=== PATIENT | female | born 1970 | race Caucasian/White ===

== ENCOUNTER 2017-02-25 10:05 | Emergency (ER) | payer MEDICAID ==
[2017-02-25 10:06] VITALS: BMI 21.1
[2017-02-25 10:27] VITALS: RESP 16; TEMP 98
[2017-02-25] MEDS ORDERED: Sodium Chloride 0.9% 1,000 ML IV STA (10:37)
--- NOTE | 2017-02-25 10:37 | ED PDOC ---
Arrival/HPI - General Chief Complaint: Headache Time Seen by Provider: 02/25/17 10:15 Historian: Patient - History of Present Illness Narrative History of Present Illness (Text): 02/25/17 10:25 Nasima Conklin is a 46 year old female, whose past medical history includes vertigo and hysterectomy, who presents to the emergency department complaining of dizziness, nausea, and vomiting since 3 days ago. Patient reports symptoms are similar, but worse compared to her previous vertigo episodes due to the duration. Patient denies abdominal pain, chest pain, shortness of breath, visual changes or other complaints. Time/Duration: < week (3 days ) Symptom Onset: Sudden Symptom Course: Unchanged Activities at Onset: Light Context: Standing Associated Symptoms (Text): 02/25/17 nausea, vomiting, dizziness, headache Past Medical History - Provider Review Nursing Documentation Reviewed: Yes - Infectious Disease Hx of Infectious Diseases: None - Tetanus Immunization Tetanus Immunization: Unknown - Past Medical History Past Medical History: No Previous - Neurological Hx Headaches: Yes - Hematological/Oncological Hx Anemia: Yes Hx Blood Transfusions: Yes Hx Blood Transfusion Reaction: No - Musculoskeletal/Rheumatological Hx Falls: No - Gastrointestinal Hx Gastritis: Yes - Genitourinary/Gynecological Other/Comment: FIBROMA - REASON for hysterectomy - Psychiatric Hx Depression: No Hx Emotional Abuse: No Hx Physical Abuse: No Hx Substance Use: No - Surgical History Hx Hysterectomy: Yes - Anesthesia Hx Anesthesia: Yes Hx Anesthesia Reactions: No - Suicidal Assessment Feels Threatened In Home Enviroment: No Family/Social History - Physician Review Nursing Documentation Reviewed: Yes Family/Social History: No Known Family HX Smoking Status: Never Smoked Hx Alcohol Use: No Hx Substance Use: No Hx Substance Use Treatment: No Allergies/Home Meds Allergies/Adverse Reactions: Allergies codeine Allergy (Severe, Verified 02/25/17 10:28) ANAPHYLAXIS Home Medications: Home Meds Medication Instructions Recorded Confirmed Ibuprofen [Motrin Ib] 0 mg PO PRN PRN 02/25/17 02/25/17 Topiramate [Topamax] 50 mg PO DAILY 02/25/17 02/25/17 Review of Systems - Physician Review All systems were reviewed & negative as marked: Yes - Review of Systems Eyes: absent: Vision Changes Respiratory: absent: SOB Gastrointestinal: Nausea, Vomiting Neurological: Headache, Dizziness Physical Exam - Physical Exam Narrative Physical Exam (Text): Constitutional: No acute distress. Head: Normocephalic. Atraumatic. Eyes: PERRL. ENT: Moist mucous membranes. Neck: Supple. Cardiovascular: Regular rate. Chest: No tenderness. Respiratory: Clear to auscultation bilaterally. GI: Soft. Nontender. Nondistended. Back: No CVA tenderness. Musculoskeletal: No tenderness or swelling of extremities. Skin: No rash. Neurologic: Alert, no focal deficit. FTN, HTS normal. Motor strength 5/5 x 4. ( +) trino hallpike test. Vital Signs Reviewed: Yes Vital Signs Temp Pulse Resp BP Pulse Ox 02/25/17 10:18 98 F 72 16 109/74 99 Medical Decision Making ED Course and Treatment: Treated with Meclizine, toradol, zofran, IVF. 02/25/17 Progress Notes: 02/25/17 12:25 CT Head: Creator : Juan Woodward MD FINDINGS: HEMORRHAGE: No intracranial hemorrhage. BRAIN: No mass effect or edema. No atrophy or chronic microvascular ischemic changes. VENTRICLES: Unremarkable. No hydrocephalus. CALVARIUM: Unremarkable. PARANASAL SINUSES: Unremarkable as visualized. No significant inflammatory changes. MASTOID AIR CELLS: Unremarkable as visualized. No inflammatory changes. OTHER FINDINGS: None. IMPRESSION: Normal CT of the Head. Patient states she feels better. No vomiting in ED. Will discharge home, f/u ENT , return to ED for worsening pain, fever, stiff neck, intractible vertigo, or any other problem. - RAD Interpretation Radiology Orders: 02/25/17 10:38 HEAD W/O CONTRAST [CT] Stat Customer Counter Associate: Radiologist - Medication Orders Current Medication Orders: Discontinued Medications Sodium Chloride (Sodium Chloride 0.9%) 1,000 mls @ 999 mls/hr IV .Q1H1M STA Stop: 02/25/17 11:37 Last Admin: 02/25/17 11:43 Dose: 999 mls/hr eMAR Start Stop Document 02/25/17 11:43 HI (Rec: 02/25/17 11:43 HI [id number]) Intravenous Solution Start Date 02/25/17 Start Time 11:43 Ketorolac Tromethamine (Toradol) 30 mg IVP STAT STA Stop: 02/25/17 10:39 Last Admin: 02/25/17 11:44 Dose: 30 mg MAR Pain Assessment Document 02/25/17 11:44 HI (Rec: 02/25/17 11:44 HI [id number]) Pain Reassessment Is this a pain reassessment? No IVP Administration Document 02/25/17 11:44 HI (Rec: 02/25/17 11:44 HI [id number]) Charges for Administration # of IVP Administrations 1 Meclizine HCl (Antivert) 25 mg PO STAT STA Stop: 02/25/17 10:39 Last Admin: 02/25/17 11:44 Dose: 25 mg Ondansetron HCl (Zofran Inj) 8 mg IVP STAT STA Stop: 02/25/17 10:38 Last Admin: 02/25/17 11:43 Dose: 8 mg IVP Administration Document 02/25/17 11:43 HI (Rec: 02/25/17 11:44 HI [id number]) Charges for Administration # of IVP Administrations 1 - Scribe Statement The provider has reviewed the documentation as recorded by the Mahamedibmike Shirley Provider Scribe Attestation: All medical record entries made by the Scribe were at my direction and personally dictated by me. I have reviewed the chart and agree that the record accurately reflects my personal performance of the history, physical exam, medical decision making, and the department course for this patient. I have also personally directed, reviewed, and agree with the discharge instructions and disposition. Disposition/Present on Arrival - Present on Arrival Any Indicators Present on Arrival: No History of DVT/PE: No History of Uncontrolled Diabetes: No Urinary Catheter: No History of Decub. Ulcer: No History Surgical Site Infection Following: None - Disposition Have Diagnosis and Disposition been Completed?: Yes Diagnosis: Vertigo Disposition: HOME/ ROUTINE Disposition Time: 12:32 Patient Plan: Discharge Condition: STABLE Discharge Instructions (ExitCare): Vertigo (ED) Prescriptions: Meclizine [Antivert] 25 mg PO TID PRN #20 tab PRN Reason: Dizziness Ondansetron ODT [Zofran ODT] 4 mg PO Q8 #12 odt Referrals: Ele Real DO [Primary Care Provider] - Follow up with primary Jose Reddy DO [Staff Provider] - Follow up with primary Forms: [employer] (Armenian)
--- NOTE | 2017-02-25 12:21 | CT ---
PROCEDURE: CT HEAD WITHOUT CONTRAST. HISTORY: headache, vomiting COMPARISON: None available. TECHNIQUE: Axial computed tomography images were obtained through the head/brain without intravenous contrast. Radiation dose: Total exam DLP = 678.13 mGy-cm. This CT exam was performed using one or more of the following dose reduction techniques: Automated exposure control, adjustment of the mA and/or kV according to patient size, and/or use of iterative reconstruction technique. FINDINGS: HEMORRHAGE: No intracranial hemorrhage. BRAIN: No mass effect or edema. No atrophy or chronic microvascular ischemic changes. VENTRICLES: Unremarkable. No hydrocephalus. CALVARIUM: Unremarkable. PARANASAL SINUSES: Unremarkable as visualized. No significant inflammatory changes. MASTOID AIR CELLS: Unremarkable as visualized. No inflammatory changes. OTHER FINDINGS: None. IMPRESSION: Normal CT of the Head.
[2017-02-25 13:03] VITALS: BP 112/87; PULSE 70; O2SAT 100
== END 2017-02-25 13:00 | disposition home or self-care (01) ==
LOC: ED 10:05
DX: R42 Dizziness and giddiness (principal)
CPT/HCPCS: 70450; 96374; 96375; 99285; J1885; J2405; J7040